=== PATIENT | female | born 1945 | race Caucasian/White ===

== ENCOUNTER 2016-06-16 18:46 | Observation (INO) | payer OTHER ==
[~2016-06-16] VITALS: Ht 152.4 cm; Wt 49.0 kg
[~2016-06-16 18:46] MED LIST: ALBUTEROL SULF8.5 GM IH; AMBIEN5 MG PO; BENADRYL50 MG PO; CALCIUM 600 +1 EAC3; CALCIUM 600 +1 EAC6 PO; CALCIUM 600 MG1 EACH PO; CALCIUM VITAMIN D; CATAPRES0.1 MG PO; CILOSTAZOL50 MG; CILOSTAZOL50 MG PO; CYCLOBENZAPRINE10 MG PO; FLEXERIL10 MG PO; HYCODAN SYRUP480 ML PO; LISINOPRIL10 MG PO; LISINOPRIL40 MG PO; MARTEN-TAB 3251 EACH PO; NOLVADEX10 MG PO; NOLVADEX20 MG PO; OXYCODONE-APAP1 EACH PO; PANCRELIPASE 51 EACH PO; PEN-VEE K,VEET500 MG PO; PERCOCET 10/1 TABLE1 PO; PERCOCET 5/31 TABLET PO; PLAVIX75 MG; PLAVIX75 MG PO; PLETAL50 MG PO; PREDNISONE20 MG PO; PREDNISONE50 MG PO; PROAIR HFA8.5 GM IH; PROMETHAZINE HC25 M1 PO; RANITIDINE HCL300 MG; RANITIDINE HCL300 MG PO; RECLAST5 MG/100 M IV; SONATA10 MG; SONATA10 MG PO; SPIRIVA1 INHALATI IH; TAMOXIFEN; ZANTAC300 MG PO; ZESTRIL10 MG PO; ZITHROMAX Z-PA250 MG PO; ZITHROMAX250 MG PO; ZOLPIDEM TARTRAT5 MG PO; [UNRECOGNIZED DRUG - OTHER]; [UNRECOGNIZED DRUG - OTHER] PO
[2016-06-16 19:11] LABS: MCHC 34.3 G/DL (30.0-36.0); MCV 96.1 FL (83-99); MEAN PLAT.VOLUME 10.8 uM^3 (9.5-12.4); PLATELET COUNT 338 K/uL (156-360); RBC DIS.WIDTH-CV 15.1 % (11.8-14.6); RBC DIS.WIDTH-SD 50.3 % (39-53); RED BLOOD COUNT 4.37 M/uL (3.80-5.20); WHITE BLOOD COUNT 7.5 K/uL (4.1-10.2)
[2016-06-16 19:21] LABS: ADD MIUA? NO; BILIRUBIN NEGATIVE; BLOOD NEGATIVE; COLOR YELLOW ((YELLOW)); GLUCOSE (STRIP) NEGATIVE; KETONES NEGATIVE; LEUKOCYTES NEGATIVE; NITRITE NEGATIVE; PH, URINE 7.5 (5-8); PROTEIN (STRIP) NEGATIVE; SPECIFIC GRAVITY 1.018 (1.000-1.030); UCUL ADDED? NO; UROBILINOGEN 0.2 MG/DL (0.2-1.0)
[2016-06-16 19:22] LABS: CHLORIDE 107 mEq/L (99-109); POTASSIUM 4.4 mEq/L (3.7-5.4); SODIUM 139 mEq/L (136-147)
[2016-06-16 19:25] LABS: GLUCOSE 130 mg/dL (70-99)
[2016-06-16 19:26] LABS: ANION GAP 12 MEQ/L (2-14); TOTAL BILIRUBIN 0.2 mg/dL (0.0-1.0)
[2016-06-16 19:28] LABS: ALKALINE PHOSPHATASE 57 IU/L (3-129); GFR ESTIMATE (CALCULATED) > 59 mL/min/
[2016-06-16 19:29] LABS: UREA NITROGEN (BUN) 7 mg/dL (9-23)
[2016-06-16 19:30] LABS: DIRECT BILIRUBIN 0.1 mg/dL (0.0-0.3)
[2016-06-16 19:32] LABS: LIPASE 8 U/L (1.0-51.0)
[2016-06-17 03:37] VITALS: BP 153/76
== END 2016-06-17 06:04 | disposition left against medical advice (07) ==
LOC: EME 18:46 → EDOF 06-17 04:43
DX: R10.31 Right lower quadrant pain (principal); I70.291 Other atherosclerosis of native arteries of extremities, right leg; Z95.820 Peripheral vascular angioplasty status with implants and grafts; I70.92 Chronic total occlusion of artery of the extremities; F17.200 Nicotine dependence, unspecified, uncomplicated; J44.9 Chronic obstructive pulmonary disease, unspecified; I10 Essential (primary) hypertension; Z85.3 Personal history of malignant neoplasm of breast; G89.29 Other chronic pain; Z79.891 Long term (current) use of opiate analgesic; Z79.02 Long term (current) use of antithrombotics/antiplatelets; Z82.49 Family history of ischemic heart disease and other diseases of the circulatory system; Z83.3 Family history of diabetes mellitus; Z88.6 Allergy status to analgesic agent; Z88.8 Allergy status to other drugs, medicaments and biological substances
CPT/HCPCS: 74177; 80053; 81003; 82248; 83690; 85027; 99281; 99285; G0378; J1170; J1885; J2405; J3010; J7030

== ENCOUNTER → 2016-09-22 | Outpatient (CLI) | payer OTHER ==
[~2016-09-22] VITALS: Ht 152.4 cm; Wt 50.0 kg
[2016-09-22 16:10] VITALS: BP 143/65
== END | disposition home or self-care (01) ==
LOC: IVINF 09-15 11:00
DX: M81.8 Other osteoporosis without current pathological fracture (principal)
CPT/HCPCS: 96365; J3489

== ENCOUNTER 2017-10-20 15:59 | Emergency (ER) | payer OTHER ==
[~2017-10-20] VITALS: Ht 152.4 cm; Wt 54.3 kg
[2017-10-20 16:58] LABS: HEMATOCRIT 38.4 % (36.0-46.0); HEMOGLOBIN 13.1 G/DL (11.9-15.5); MCH 32.7 PG (29.0-34.0); MCHC 34.1 G/DL (30.0-36.0); MCV 95.8 FL (83-99); PLATELET COUNT 238 K/uL (156-360); RBC DIS.WIDTH-CV 14.6 % (11.8-14.6); RBC DIS.WIDTH-SD 51.6 % (39-53); RED BLOOD COUNT 4.01 M/uL (3.80-5.20); WHITE BLOOD COUNT 5.4 K/uL (4.1-10.2)
[2017-10-20 17:08] LABS: PTT 31.7 SEC (25-37)
[2017-10-20 17:11] LABS: CHLORIDE 109 mEq/L (99-109); POTASSIUM 3.7 mEq/L (3.7-5.4); SODIUM 139 mEq/L (136-147)
[2017-10-20 17:13] LABS: GLUCOSE 74 mg/dL (70-99)
[2017-10-20 17:17] LABS: CREATININE 0.7 mg/dL (0.6-1.3); GFR ESTIMATE (CALCULATED) > 59 mL/min/
[2017-10-20 17:18] LABS: UREA NITROGEN (BUN) 12 mg/dL (9-23)
[2017-10-20] MEDS ORDERED: PERCOCET 5/31 TABLET PO (20:58)
[2017-10-20 21:15] VITALS: BP 179/69
== END 2017-10-20 21:23 | disposition home or self-care (01) ==
LOC: EME 15:59
PROVIDERS: Physician Assistant
DX: I73.9 Peripheral vascular disease, unspecified (principal); M79.605 Pain in left leg; M79.672 Pain in left foot; M79.89 Other specified soft tissue disorders; I10 Essential (primary) hypertension; Z79.02 Long term (current) use of antithrombotics/antiplatelets; Z85.3 Personal history of malignant neoplasm of breast; Z90.12 Acquired absence of left breast and nipple; F17.200 Nicotine dependence, unspecified, uncomplicated
CPT/HCPCS: 80048; 83605; 85027; 85610; 85730; 93926; 93971; 99281; 99284